=== PATIENT | male | born 1960 | race Caucasian/White ===

== ENCOUNTER 2016-10-06 15:18 | Emergency (ER) | payer OTHER ==
[~2016-10-06] VITALS: Ht 188 cm; Wt 122.7 kg
[2016-10-06 15:20] VITALS: BP 152/89; PULSE 75; RESP 16; O2SAT 96
--- NOTE | 2016-10-06 15:42 | ED.REPORT ---
HPI-Eye Problem Date of Service Oct 06, 2016 ED Provider: Isiah Lugo MD The patient is a 56 year old male w/ a hx of DM who presents to the ED due to sudden onset double vision for the past 2 days which began while driving. Associated symptoms include back pain, joint pain and pain behind left eye. His noticed that his left eye went lazy for a second. His vision is slightly worse today then yesterday. Pt denies photophobia, headache, fever, difficulty speaking, slurred speech, numbness, and weakness. Nursing Notes Stated Complaint: DOUBLE VISION, BACK PAIN, CROSS-EYED Chief Complaint: Eye Nursing Notes Reviewed: Yes (Aktana, meds not reconciled) Allergies: Coded Allergies: No Known Allergies (Unverified , 10/06/16) General Time Seen by MD: 15:37 Chief Complaint Double vision Hx Obtained From: Patient Arrived By: Walk-in Sudden in Onset?: Yes Onset Occurred: 2 days ago Symptom Duration: Since onset Progression Since Onset: Gradually worsening Severity: Current: No pain currently Recent Healthcare: No recent doctor visit, No recent hospitalization Similar Sx Previous: No Review of Systems Constitutional: Denies: Fever Eyes: Reports: Diplopia, Denies: Photophobia Neurologic: Denies: Headache, Numbness, Slurred speech, Weakness Complete sys rev & neg: except as marked. Musculoskeletal: Reports: Back pain, Joint pain Physical Exam Initial Vital Signs Vital Signs (First) Date Time Temp Pulse Resp B/P Pulse Ox O2 Delivery O2 Flow Rate FiO2 10/06/16 15:20 36.6 75 16 152/89 96 Room Air Initial VS: Reviewed, Vital signs normal Head / Eyes: Normocephalic extra-occular palsy slight drift of left eye General/Constitutional: Awake, Alert, Cooperative, Not toxic appearing ENT: Atraumatic, Mucous membranes moist Skin: Atraumatic, Color NL, No rash Respiratory / Chest: Atraumatic, Breath sounds NL, Breath sounds = bilat Cardiovascular: Heart rate NL, Regular rhythm, Heart sounds NL Upper Extremity / MS: Atraumatic, Full range of motion, No deformity Wrist / Hand: Atraumatic, Full range of motion, No deformity Lower Extremity / Pelvis / MS: Atraumatic, Full range of motion, No deformity Ankle / Foot: Atraumatic, Full range of motion, No deformity Interpretation & Diagnostics Interpretation & Diagnostics: HEAD CT IMPRESSION: 1. No acute intracranial abnormalities. 2. Moderate dependent left maxillary sinus mucosal thickening, suggesting sinusitis. Dictated by: Moose Asencio M.D. on 10/06/2016 at 16:12 MRI BRAIN WITHOUT CONTRAST: IMPRESSION: 1. No acute intracranial abnormality. Specifically, no acute infarct identified. Dictated by: Sanchez Pierce M.D. on 10/06/2016 at 19:01 Lab Results Interpretation Result Diagram: 10/06/16 1715 10/06/16 1540 Test 10/06/16 15:40 10/06/16 17:15 10/06/16 17:16 Sodium Level 135mEq/L (134-144) Potassium Level 4.4mEq/L (3.5-5.2) Chloride Level 98mEq/L (97-108) Carbon Dioxide Level 22mmol/L (18-29) Blood Urea Nitrogen 16mg/dL (6-24) Creatinine 1.01mg/dL (0.76-1.27) Estimat Glomerular Filtration Rate 81mL/min (>59) Glucose Level 143mg/dL (60-99) Calcium Level 9.5mg/dL (8.5-10.1) Total Bilirubin 0.4mg/dL (0.0-1.2) Aspartate Amino Transf (AST/SGOT) 20U/L (0-50) Alanine Aminotransferase (ALT/SGPT) 21U/L (0-44) Alkaline Phosphatase 65U/L (25-150) C-Reactive Protein 0.5mg/dL (0.0-0.5) Total Protein 7.6g/dL (6.4-8.4) Albumin 4.2g/dL (3.4-5.0) White Blood Count 13.5th/mm3 (3.8-10.1) Red Blood Count 4.48mil/mm3 (4.40-5.80) Hemoglobin 13.5g/dL (13.8-17.2) Hematocrit 40.6% (41.0-50.0) Mean Corpuscular Volume 90.6fL (81-100) Mean Corpuscular Hemoglobin 30.1pg (27.0-35.0) Mean Corpuscular Hemoglobin Concent 33.3% (32.0-37.0) Red Cell Distribution Width 12.7% (12.3-15.4) Platelet Count 220bil/L (150-400) Neutrophils (%) (Auto) 72.9% (40-74) Lymphocytes (%) (Auto) 16.0% (14-46) Monocytes (%) (Auto) 8.4% (4-12) Eosinophils (%) (Auto) 2.0% (0-5) Basophils (%) (Auto) 0.3% (0-3) Prothrombin Time 9.8sec (8.1-12.5) Prothromb Time International Ratio 0.92ratio Linn Level 0.8mEq/L (0.5-1.5) Hold Fontanez Top Tube Received (Received) Re-Eval/Medical Decision Med Decision/Clinical Course This is a 53-year-old male who presents with diplopia that started Luis, and has persisted. He denies headache, but has a little bit of left visual worsening he did not notice until visual acuity testing in the emergency department. He denies trauma, denies numbness or paresthesias elsewhere. On exam, the patient does appear to have a mild lateral rectus palsy of the left eye, with incomplete eye deviation. Otherwise I appears normal normal pupillary reaction, there is no erythema. The patient's neurologic exam is otherwise normal, with no other abnormalities identified. At this point there is a moderate differential, the patient does not meet criteria for TPA stroke is not a definitive diagnosis at this time. Noncontrast head CT is negative. The plan is to obtain MRI imaging and I discussed that this with the radiologist , the psychiatric tech is being paged. Labs are being obtained. Patient is being turned over to oncoming provider change of shift. Meg Argueta: 56-year-old type II diabetic with left lateral rectus palsy. MRI is negative no other neurologic deficits. Ophthalmology follow-up is arranged, discharged home. Source of Hx: Old records Re-Evaluation/Progress : Time of Eval: 19:21 Re-Evaluation/Progress Note: Pt re-examed by Dr. Argueta. Pt confirmed diplopia in his left eye with left eye pain that developed while he was driving 2 days ago. Pt denies headache. He reports that his lithium dose has not changed. HEAD/EYES: PERRLA, left lateral rectus, no orbial edema appears to be present. No temporal tenderness. NEUROLOGIC: No facial droop or asymmetry Consultation : Referral / Consult Name: Betty Thurman MD Consulted With: Safe Deposit Attendant Call Returned at: 19:50 Compounding Pharmacy Technician: Agrees with eval, Agrees with plan Note: Discussed pt's case. He recommends packing the non-dominant eye, and adding esserderate CRP. They will see the pt within 2 days. Counseled Regarding: Diagnosis, Lab results, Need for follow-up, When/why to return to ED Discharge & Departure Shift Change Sign-Out Patient Care Transferred: Yes Discussed Complaint(s): Yes Laboratory Evaluation: Lab evaluation discussed Imaging Studies: Ordered, not yet done Input from Consult: Pt care transferred to Dr. Argueta at change of shift. Primary Impression: Ocular palsy Additional Impression: Diplopia Disposition: Home Discharge Condition All VS Reviewed: Yes Condition: Stable Additional Instructions: Emergency department evaluation today included interview, examination labs and CT and MRI of brain. The left eye was patched. No stroke or other emergent cause for double vision is identified tonight. Case discussed with ophthalmology who will see you in follow-up within 48 hours. Call tomorrow morning for an appointment. Call the emergency department if you have any difficulty getting in to be seen. Current emergency department for headache, new weakness or other new symptoms. Referrals: Betty Thurman MD Care Transferred to: Care transferred to Dr. Argueta at change of shift. Care Transferred at: 18:01 Scribe Attestation Portion of this note were transcribed by Nahed Smith. Dr. Parish Vallejo, personally performed the history, physical exam, and medical decision-making: I reviewed and confirmed the accuracy for the information in the transcribed note. Signed by: tobin Kelsey, 10/06/16 1700 Portions of this note were transcribed by Cony Fonseca. Dr. Kendall Vallejo personally performed the history, physical exam and medical decision-making; I reviewed and confirmed the accuracy of the information in the transcribed note. Signed by : Tobin Solorzano, 10/06/16. copies to: [facility]; Betty Thurman MD, Matthew F MD Oct 06, 2016 15:42 Nahed Smith Oct 06, 2016 16:15 Cony Puga Oct 06, 2016 19:18 Martin Argueta MD Oct 06, 2016 20:27
--- NOTE | 2016-10-06 16:16 | DRSVH ---
PROCEDURE: CT BRAIN WITHOUT CONTRAST ([id number]) INDICATIONS: 56 year-old male with diplopia for 3 days. TECHNIQUE: Noncontrast 4.5 mm thick angled axial sections acquired from the foramen magnum to the vertex, with c oronal reformats. COMPARISON: None. FINDINGS: Image quality: Excellent. CSF spaces: Basal cisterns are patent. No extra-axial fluid collections. Ventricles are normal in size and shape. Brain: No midline shift. No intracranial masses or hemorrhage. Mcleod-white matter interface is norm al. Skull and face: Calvarium and visualized facial bones are intact, without suspicious lesions. Orbita l gaze directions are conjugate. Sinuses: There is moderate dependent left maxillary sinus mucosal thickening. Other visualized sinuse s and mastoids are clear. IMPRESSION: 1. No acute intracranial abnormalities. 2. Moderate dependent left maxillary sinus mucosal thickening, suggesting sinusitis. Dictated by: Moose Asencio M.D. on 10/06/2016 at 16:12 Approved by: Moose Asencio M.D. on 10/06/2016 at 16:14
[2016-10-06 17:19] LABS: BASOPHILS % (AUTO) 0.3 % (0-3); MONOCYTES % (AUTO) 8.4 % (4-12); Mean Corpuscular Hemoglobin 30.1 pg (27.0-35.0); Mean Corpuscular Volume 90.6 fL (81-100); NEUTROPHILS % (AUTO) 72.9 % (40-74); Platelet Count 220 bil/L (150-400)
[2016-10-06 17:36] LABS: INR 0.92 ratio
[2016-10-06 17:48] VITALS: BP 136/65; PULSE 84; RESP 20; O2SAT 97
[2016-10-06 18:56] VITALS: BP 134/72; PULSE 70; RESP 20; O2SAT 97
--- NOTE | 2016-10-06 19:03 | DRSVH ---
PROCEDURE: MRI BRAIN WITHOUT CONTRAST ([id number]) INDICATIONS: Diplopia with clinical left lateral rectus palsy. TECHNIQUE: Noncontrast axial T1 spin echo, axial T2 fast spin echo, sagittal and axial FLAIR, coronal T2 fast sp in echo, axial gradient echo, axial diffusion and ADC through the brain. COMPARISON: [facility], CT, CT BRAIN WO CON, 10/06/2016, 15:50. FINDINGS: Image quality: Excellent. CSF Spaces: Basal cisterns are patent. No extra-axial fluid collections. Ventricles are normal in size and shape. Brain: No intracranial hemorrhage, mass, or mass effect. Mcleod/white matter interface is normal. Br ainstem appears normal without evidence of brainstem infarct. Diffusion-weighted images demonstrate no acute infarcts. Normal intravascular flow voids are present. Skull and face: Calvarium has normal marrow signal. Orbits appear within normal limits. The extrao cular muscles are symmetric in size bilaterally. No intraorbital mass lesion identified. Sinuses: There is moderate mucosal thickening within the left maxillary sinus and minimal thickening on the right. Mastoid air cells are clear. IMPRESSION: 1. No acute intracranial abnormality. Specifically, no acute infarct identified. Dictated by: Sanchez Pierce M.D. on 10/06/2016 at 19:01 Approved by: Sanchez Pierce M.D. on 10/06/2016 at 19:01
[2016-10-06] MEDS ORDERED: HYDROcodone-APAP 5-325 mg Tablet PO ONE (19:20)
[2016-10-06 20:53] VITALS: BP_SYST 119; BP_SYST 134; BP_DIAS 69; BP_DIAS 72; PULSE 70; PULSE 71; RESP 20; O2SAT 94; O2SAT 97
== END 2016-10-06 20:40 | disposition home or self-care (01) ==
LOC: SED 15:18
DX: H49.02 Third [oculomotor] nerve palsy, left eye (principal); H53.2 Diplopia; E11.9 Type 2 diabetes mellitus without complications; M54.9 Dorsalgia, unspecified; M25.50 Pain in unspecified joint